=== PATIENT | male | born 2000 | race Two or more races ===

== ENCOUNTER 2018-09-08 14:13 | Emergency (ER) | payer OTHER ==
[~2018-09-08] VITALS: Ht 172.7 cm; Wt 54.9 kg
== END 2018-09-08 16:50 | disposition home or self-care (01) ==
LOC: ER 14:13
DX: S70.311A Abrasion, right thigh, initial encounter (principal); W55.03XA Scratched by cat, initial encounter; Y93.89 Activity, other specified; Y92.89 Other specified places as the place of occurrence of the external cause; Y99.8 Other external cause status